=== PATIENT | female | born 1985 | race African-American/Black ===

== ENCOUNTER → 2016-08-19 | Outpatient (CLI) | payer OTHER ==
[~2016-08-19] MED LIST: BIRTH CONTROL PILLS; ERYTHROMYCIN E3.5 GM OU; MACROBID 1100 MG/CAP PO; SKELAXIN 4400 MG/TAB PO; TRIVORA-281 TAB PO
== END ==
LOC: BHSO 15:15
DX: F43.10 Post-traumatic stress disorder, unspecified (principal)

== ENCOUNTER → 2016-10-11 | Outpatient (CLI) | payer BC | LOC: BHSO 09:19 | DX: F43.10 Post-traumatic stress disorder, unspecified (principal) ==